=== PATIENT | female | born 1960 | race Native Hawaiian/Other Pacific Islander ===

== ENCOUNTER 2021-12-13 15:06 | Outpatient (CLI) | payer BC | END 2021-12-13 22:35 | disposition home or self-care (01) | LOC: MAMMO 15:06 | PROVIDERS: ATTEND Nurse Practitioner Family | DX: Z12.31 Encounter for screening mammogram for malignant neoplasm of breast (principal); L98.9 Disorder of the skin and subcutaneous tissue, unspecified; Z76.89 Persons encountering health services in other specified circumstances ==